=== PATIENT | male | born 1965 | race African-American/Black ===

== ENCOUNTER 2023-11-30 17:37 | Emergency (ER) | payer MEDICAID ==
[~2023-11-30] VITALS: Ht 188 cm; Wt 114.0 kg
[2023-11-30 17:50] VITALS: PULSE 109; RESP 16
[2023-11-30 17:52] VITALS: BP 142/97; TEMP 98.6; O2SAT 97
[2023-11-30 19:12] LABS: BASOPHILS % 0.8 % (0.0-2.0); EOSINOPHILS % 1.2 % (0.0-5.0); HEMATOCRIT. 44.2 % (42.0-52.0); HEMOGLOBIN. 15.3 g/dL (14.0-18.0); LYMPHOCYTES % 37.5 % (20.0-50.0); MEAN CORPUSCULAR HEMOGLOBIN 31.5 pg (28.0-32.0); MEAN CORPUSCULAR HGB CONC 34.7 g/dL (31.0-37.0); MEAN CORPUSCULAR VOLUME 90.7 fL (80.0-94.0); MEAN PLATELET VOLUME 7.7 fl (7.4-10.4); NEUTROPHILS % 55.5 % (40.0-76.0); PLATELET 273 x1000/uL (130-400); RED BLOOD CELL COUNT 4.88 mill/uL (4.7-6.1); RED CELL DISTRIBUTION WIDTH 13.6 % (11.6-14.6); WHITE BLOOD COUNT 12.6 x1000/uL (4.5-11.0)
[2023-11-30 19:30] LABS: CHLORIDE 107 mEq/L (98-107); POTASSIUM 3.9 mEq/L (3.5-5.1); SODIUM 143 mEq/L (136-145)
[2023-11-30 19:31] LABS: CALCIUM 10.9 mg/dL (8.7-10.4); CARBON DIOXIDE 28 mEq/L (21-32)
[2023-11-30 19:36] LABS: CREATININE 1.1 mg/dL (0.6-1.3); GLUCOSE 116 mg/dL (70-105); UREA NITROGEN BLOOD 13 mg/dL (9-23)
[2023-11-30 19:38] LABS: ALANINE AMINOTRANSFERASE 17 IU/L (10-49); ALBUMIN 4.9 g/dL (3.2-4.8); ASPARTATE AMINOTRANSFERASE 17 IU/L (<34); BILIRUBIN DIRECT 0.3 mg/dL (<=3.0); BILIRUBIN TOTAL 0.8 mg/dL (0.1-1.0); PROTEIN TOTAL 7.7 g/dL (6.0-8.3)
== END 2023-11-30 19:24 | disposition left against medical advice (07) ==
LOC: ER 17:57
DX: R10.9 Unspecified abdominal pain (principal); Z53.21 Procedure and treatment not carried out due to patient leaving prior to being seen by health care provider
CPT/HCPCS: 36415; 80048; 80076; 85025; 93005

== ENCOUNTER 2024-06-19 18:59 | Emergency (ER) | payer MEDICAID ==
[~2024-06-19] VITALS: Ht 182.9 cm; Wt 132.0 kg
[~2024-06-19 18:59] MED LIST: ASPI-1497 PO; BACL5TAB PO; CHOL-9 PO; CLOP-31 PO; DOCU-422 PO; LIP40 PO; METF-414 PO; MULT-1146 PO; TOPUD PO; TRAM50TA3 PO
[2024-06-19 19:08] VITALS: TEMP 98.1; O2SAT 97
[2024-06-19 20:28] LABS: BASOPHILS % 0.4 % (0.0-2.0); EOSINOPHILS % 0.6 % (0.0-5.0); HEMATOCRIT. 40.8 % (42.0-52.0); HEMOGLOBIN. 13.7 g/dL (14.0-18.0); LYMPHOCYTES % 33.5 % (20.0-50.0); MEAN CORPUSCULAR HEMOGLOBIN 30.4 pg (28.0-32.0); MEAN CORPUSCULAR HGB CONC 33.7 g/dL (31.0-37.0); MEAN CORPUSCULAR VOLUME 90.2 fL (80.0-94.0); MEAN PLATELET VOLUME 8.1 fl (7.4-10.4); MONOCYTES % 5.5 % (2.0-8.0); PLATELET 276 x1000/uL (130-400); RED BLOOD CELL COUNT 4.52 mill/uL (4.7-6.1); RED CELL DISTRIBUTION WIDTH 14.4 % (11.6-14.6); WHITE BLOOD COUNT 11.9 x1000/uL (4.5-11.0)
[2024-06-19 20:33] LABS: CALCIUM 9.8 mg/dL (8.7-10.4); CARBON DIOXIDE 25 mEq/L (21-32); CHLORIDE 110 mEq/L (98-107); POTASSIUM 3.4 mEq/L (3.5-5.1); SODIUM 145 mEq/L (136-145)
[2024-06-19 20:34] LABS: PROTHROMBIN TIME 11.4 sec (9.6-11.0)
[2024-06-19 20:36] LABS: CREATININE 0.8 mg/dL (0.6-1.3); GLUCOSE 140 mg/dL (70-105); UREA NITROGEN BLOOD 14 mg/dL (9-23)
[2024-06-19 20:38] LABS: ALANINE AMINOTRANSFERASE 13 IU/L (10-49); ALBUMIN 4.1 g/dL (3.2-4.8); ASPARTATE AMINOTRANSFERASE 17 IU/L (<34); BILIRUBIN DIRECT 0.2 mg/dL (<=3.0)
[2024-06-19 20:39] LABS: BILIRUBIN TOTAL 0.5 mg/dL (0.1-1.0); ETHANOL BLOOD < 10 mg/dL (<10); PROTEIN TOTAL 6.9 g/dL (6.0-8.3)
[2024-06-19 20:40] LABS: TROPONIN I HIGH SENSITIVITY 5 ng/L (3.0-53)
[2024-06-19] MEDS: MORPHINE SULFATE 4 MG/ML INJ (FOR IV/IM USE) IV ONE (21:20)
[2024-06-19 21:34] LABS: CLARITY URINE CLEAR (CLEAR); COLOR URINE DARK YELLOW (YELLOW); GLUCOSE URINE NEGATIVE (NEGATIVE); KETONES URINE TRACE (NEGATIVE); LEUKOCYTE ESTERASE URINE NEGATIVE (NEGATIVE); NITRITE URINE NEGATIVE (NEGATIVE); OCCULT BLOOD URINE NEGATIVE (NEGATIVE); PH URINE 5.5 (4.5-8.0); PROTEIN URINE NEGATIVE (NEGATIVE); SPECIFIC GRAVITY URINE 1.032 (1.005-1.030); UROBILINOGEN URINE 0.2 E.U./dL (0.2-1.0)
[2024-06-19 21:42] LABS: *AMPHETAMINES SCREEN URINE NEGATIVE (NEGATIVE); *BARBITURATES SCREEN URINE NEGATIVE (NEGATIVE); *BENZODIAZEPINES SCREEN URINE NEGATIVE (NEGATIVE); *COCAINE SCREEN URINE NEGATIVE (NEGATIVE); METHADONE URINE SCREEN NEGATIVE (NEGATIVE); OPIATES URINE SCREEN PRESUMPTIVE POSITIVE (NEGATIVE); PHENCYCLIDINE URINE SCREEN NEGATIVE (NEGATIVE)
[2024-06-19 21:43] LABS: CANNABINOID URINE SCREEN NEGATIVE (NEGATIVE); ECSTASY MDMA SCREEN URINE NEGATIVE (NEGATIVE)
[2024-06-19] MEDS: KETOROLAC 30MG/ML VIAL IV ONE (22:32)
[2024-06-19 22:46] VITALS: BP 143/86; PULSE 63; RESP 13; O2SAT 99
== END 2024-06-19 22:50 | disposition home or self-care (01) ==
LOC: ER 18:59
DX: G43.909 Migraine, unspecified, not intractable, without status migrainosus (principal); R25.2 Cramp and spasm; E11.9 Type 2 diabetes mellitus without complications; Z88.0 Allergy status to penicillin; Z79.899 Other long term (current) drug therapy; Z86.73 Personal history of transient ischemic attack (TIA), and cerebral infarction without residual deficits; Z79.82 Long term (current) use of aspirin; Z20.822 Contact with and (suspected) exposure to COVID-19
CPT/HCPCS: 80076; 80305; 80048; 81003; 80320; 82962; 83880; 83690; 85025; 85610; 84484; 87804 ×2; 36415; 71045; 70450; 74176; 93005; 96374; 96375; 99285; 87426; J1885; J2270; Z7610; G0480

== ENCOUNTER 2024-10-07 20:20 | Emergency (ER) | payer MEDICAID ==
[~2024-10-07] VITALS: Ht 188 cm; Wt 109.0 kg
[2024-10-07 20:44] VITALS: BP 127/90; PULSE 85; RESP 18; TEMP 36.6; O2SAT 98
== END 2024-10-07 23:15 | disposition left against medical advice (07) ==
LOC: ER 20:20
DX: R10.819 Abdominal tenderness, unspecified site (principal); E11.9 Type 2 diabetes mellitus without complications; I10 Essential (primary) hypertension; Z79.899 Other long term (current) drug therapy; Z86.73 Personal history of transient ischemic attack (TIA), and cerebral infarction without residual deficits; Z88.0 Allergy status to penicillin
CPT/HCPCS: 74176; 93005; 99284

== ENCOUNTER 2025-06-26 16:01 | Inpatient (IN) | payer MEDICAID ==
[~2025-06-26] VITALS: Ht 177.8 cm; Wt 88.5 kg
[2025-06-26 16:03] VITALS: O2SAT 100
[2025-06-26] MEDS: LORAZEPAM 2MG/ML UD SYRINGE IV NR (16:37)
[2025-06-26] MEDS: KETOROLAC 15MG/ML VIAL IV ONE (16:38)
[2025-06-26] MEDS: SODIUM CHLORIDE 0.9% 1,000 ML IV ONE (16:38)
[2025-06-26 17:30] LABS: BASOPHILS % 0.5 % (0.0-2.0); EOSINOPHILS % 1.0 % (0.0-5.0); HEMATOCRIT. 40.1 % (42.0-52.0); HEMOGLOBIN. 13.2 g/dL (14.0-18.0); LYMPHOCYTES % 42.9 % (20.0-50.0); MEAN PLATELET VOLUME 8.5 fl (7.4-10.4); MONOCYTES % 6.1 % (2.0-8.0); NEUTROPHILS % 49.5 % (40.0-76.0); PLATELET 198 x1000/uL (130-400); RED BLOOD CELL COUNT 4.51 mill/uL (4.7-6.1); RED CELL DISTRIBUTION WIDTH 15.2 % (11.6-14.6)
[2025-06-26 17:42] LABS: UREA NITROGEN BLOOD 9 mg/dL (9-23)
[2025-06-26 17:43] LABS: ETHANOL BLOOD < 10 mg/dL (<10)
[2025-06-26 17:44] LABS: ASPARTATE AMINOTRANSFERASE 21 IU/L (<34); BILIRUBIN DIRECT 0.3 mg/dL (<=3.0)
[2025-06-26 17:45] LABS: BILIRUBIN TOTAL 0.9 mg/dL (0.1-1.0); PROTEIN TOTAL 6.9 g/dL (6.0-8.3)
[2025-06-26 17:50] LABS: CREATININE 1.4 mg/dL (0.6-1.3)
[2025-06-26 21:09] LABS: CLARITY URINE CLEAR (CLEAR); COLOR URINE YELLOW (YELLOW); GLUCOSE URINE NEGATIVE (NEGATIVE); KETONES URINE TRACE (NEGATIVE); LEUKOCYTE ESTERASE URINE TRACE (NEGATIVE); NITRITE URINE NEGATIVE (NEGATIVE); OCCULT BLOOD URINE 3+ (NEGATIVE); PH URINE 7.5 (4.5-8.0); PROTEIN URINE NEGATIVE (NEGATIVE); SPECIFIC GRAVITY URINE 1.004 (1.005-1.030); UROBILINOGEN URINE 0.2 E.U./dL (0.2-1.0)
[2025-06-26 21:23] LABS: *AMPHETAMINES SCREEN URINE NEGATIVE (NEGATIVE); *BARBITURATES SCREEN URINE NEGATIVE (NEGATIVE); *BENZODIAZEPINES SCREEN URINE NEGATIVE (NEGATIVE); *COCAINE SCREEN URINE NEGATIVE (NEGATIVE); CANNABINOID URINE SCREEN NEGATIVE (NEGATIVE); ECSTASY MDMA SCREEN URINE NEGATIVE (NEGATIVE); METHADONE URINE SCREEN NEGATIVE (NEGATIVE); OPIATES URINE SCREEN NEGATIVE (NEGATIVE); PHENCYCLIDINE URINE SCREEN NEGATIVE (NEGATIVE)
[2025-06-26 21:30] LABS: BACTERIA URINE TRACE; RBC URINE NONE SEEN /hpf (0-2); SQUAMOUS EPITHELIAL CELL URINE FEW /lpf (RARE/1+); WBC URINE 0-2 /hpf (0-2)
[2025-06-27] MEDS ORDERED: LEVO-65 MT (01:44)
[2025-06-27] MEDS: ASPIRIN 81MG TABLET PO ONE (04:49)
[2025-06-27 04:52] LABS: BASOPHILS % 0.3 % (0.0-2.0); EOSINOPHILS % 1.1 % (0.0-5.0); HEMATOCRIT. 39.0 % (42.0-52.0); HEMOGLOBIN. 13.0 g/dL (14.0-18.0); LYMPHOCYTES % 43.8 % (20.0-50.0); MEAN PLATELET VOLUME 8.3 fl (7.4-10.4); MONOCYTES % 7.1 % (2.0-8.0); NEUTROPHILS % 47.7 % (40.0-76.0); PLATELET 189 x1000/uL (130-400); RED BLOOD CELL COUNT 4.49 mill/uL (4.7-6.1); RED CELL DISTRIBUTION WIDTH 15.0 % (11.6-14.6)
[2025-06-27 05:04] LABS: CREATININE 1.4 mg/dL (0.6-1.3); UREA NITROGEN BLOOD 13 mg/dL (9-23)
[2025-06-27 05:05] LABS: ETHANOL BLOOD < 10 mg/dL (<10)
[2025-06-27 05:06] LABS: ASPARTATE AMINOTRANSFERASE 20 IU/L (<34); BILIRUBIN DIRECT 0.3 mg/dL (<=3.0); BILIRUBIN TOTAL 0.8 mg/dL (0.1-1.0); PROTEIN TOTAL 6.3 g/dL (6.0-8.3)
[2025-06-27 05:51] LABS: INR 1.0
[2025-06-27 05:56] VITALS: BP 143/75; PULSE 47; RESP 20; TEMP 36.3; O2SAT 99
[2025-06-27] MEDS ORDERED: ACETAMINOPHEN 325MG TABLET PO PRN (06:00)
[2025-06-27] MEDS ORDERED: DEXTROSE 50% WATER 50ML SYRINGE IV PRN (06:00)
[2025-06-27] MEDS ORDERED: NALOXONE HCL 0.4MG/ML VIAL IV PRN (06:15)
[2025-06-27] MEDS ORDERED: IOHEXOL-350 100 ML BOTTLE ONE (07:13)
[2025-06-27] MEDS: BLOOD SUGAR DIAGNOSTIC STRIP TEST SCH (07:20)
[2025-06-27] MEDS: INSULIN LISPRO 100 UNITS/ML SUBCUT SCH (07:50)
[2025-06-27 08:00] VITALS: BP 127/65; PULSE 48; RESP 14; TEMP 36.2; O2SAT 99
[2025-06-27] MEDS: ASPIRIN 81MG TABLET PO SCH (10:01)
[2025-06-27] MEDS: CLOPIDOGREL 75MG TABLET PO SCH (10:02)
[2025-06-27] MEDS: HEPARIN 5000 UNITS/ML VIAL SUBCUT SCH (10:03)
[2025-06-27] MEDS: SODIUM CHLORIDE 0.9% 1,000 ML IV SCH (10:06)
[2025-06-27] MEDS: OXYCODONE HCL/ACETAMINOPHEN 5/325MG TABLET PO PRN (10:10)
[2025-06-27 12:00] VITALS: BP 114/75; PULSE 51; RESP 15; TEMP 36.5; O2SAT 99
[2025-06-27] MEDS: PANTOPRAZOLE SODIUM 40 MG/VIAL IV SCH (12:27)
[2025-06-27] MEDS: CALCIUM CARBONATE 500MG TABLET CHEW PO NR (12:28)
[2025-06-27] MEDS: NITROGLYCERIN 0.4MG TABLET SL SL PRN (12:29)
[2025-06-27 13:00] VITALS: BP 114/75; PULSE 51; RESP 16; TEMP 36.5292
[2025-06-27] MEDS ORDERED: INFLUENZA VACCINE 05/PF 0.5 ML SYRINGE IM ONE (15:00)
[2025-06-27] MEDS ORDERED: PNEUMOCOCCAL 20-VAL CONJ-DIP CRM 0.5ML IM ONE (15:00)
[2025-06-27 16:00] VITALS: BP 105/72; PULSE 50; RESP 15; TEMP 36.5; O2SAT 100
[2025-06-27 20:00] VITALS: BP 106/64; PULSE 49; RESP 19; TEMP 37; O2SAT 98
[2025-06-27 20:19] LABS: LDL CHOLESTEROL 22.0 mg/dL (5-100); TRIGLYCERIDE 83.0 mg/dL (0-150); TROPONIN I HIGH SENSITIVITY 9 ng/L (3.0-53)
[2025-06-27 20:23] LABS: FOLIC ACID (FOLATE) SERUM 16.85 ng/mL (>5.38); VITAMIN B12 SERUM 1481 pg/mL (211-911)
[2025-06-27] MEDS: ATORVASTATIN CALCIUM 40MG TABLET PO SCH (20:57)
[2025-06-28] VITALS: BP 98/57; PULSE 48; RESP 19; TEMP 36.4; O2SAT 99
[2025-06-28 04:00] VITALS: BP 108/67; PULSE 49; RESP 19; TEMP 36.5; O2SAT 98
[2025-06-28 08:00] VITALS: BP 124/79; PULSE 60; RESP 16; TEMP 36.1; O2SAT 98
[2025-06-28 09:19] LABS: BASOPHILS % 0.3 % (0.0-2.0); EOSINOPHILS % 1.6 % (0.0-5.0); HEMATOCRIT. 40.1 % (42.0-52.0); HEMOGLOBIN. 13.3 g/dL (14.0-18.0); LYMPHOCYTES % 30.6 % (20.0-50.0); MEAN PLATELET VOLUME 8.2 fl (7.4-10.4); MONOCYTES % 6.0 % (2.0-8.0); NEUTROPHILS % 61.5 % (40.0-76.0); PLATELET 173 x1000/uL (130-400); RED BLOOD CELL COUNT 4.53 mill/uL (4.7-6.1); RED CELL DISTRIBUTION WIDTH 15.2 % (11.6-14.6)
[2025-06-28 09:30] LABS: TROPONIN I HIGH SENSITIVITY 8 ng/L (3.0-53)
[2025-06-28 09:31] LABS: CREATININE 1.2 mg/dL (0.6-1.3); UREA NITROGEN BLOOD 9 mg/dL (9-23)
[2025-06-28] MEDS: MAGNESIUM OXIDE 400MG TABLET PO SCH (10:51)
[2025-06-28 12:00] VITALS: BP 140/80; PULSE 56; RESP 17; TEMP 35.8; O2SAT 99
[2025-06-28] MEDS: THEOPHYLLINE ANHYDROUS 80MG/15ML ORAL SYR PO SCH (13:08)
[2025-06-28] MEDS ORDERED: POLYETHYLENE GLYCOL 3350 (17GM) 1 DOSE PACK PO PRN (13:45)
[2025-06-28] MEDS: LORAZEPAM 2MG/ML UD SYRINGE IV PRN (14:38)
[2025-06-28 16:00] VITALS: BP 130/78; PULSE 60; RESP 17; TEMP 36.2; O2SAT 98
[2025-06-28 20:00] VITALS: BP 125/85; PULSE 69; RESP 18; TEMP 36.2; O2SAT 99
[2025-06-29] VITALS: BP 133/77; PULSE 64; RESP 19; TEMP 36.3; O2SAT 97
[2025-06-29 04:00] VITALS: BP 145/84; PULSE 63; RESP 18; TEMP 36.4; O2SAT 99
[2025-06-29 08:00] VITALS: BP 136/83; PULSE 67; RESP 18; TEMP 36.7; O2SAT 97
[2025-06-29 12:00] VITALS: BP 134/88; PULSE 82; RESP 18; TEMP 36; O2SAT 99
[2025-06-29 16:00] VITALS: BP 145/81; PULSE 57; RESP 18; TEMP 36.3; O2SAT 96
[2025-06-29 20:00] VITALS: BP 110/69; PULSE 65; RESP 18; TEMP 36.4; O2SAT 97
[2025-06-29] MEDS: THEOPHYLLINE ANHYDROUS 80MG/15ML ORAL SYR PO SCH (20:05)
[2025-06-30] VITALS (7 sets, daily range): BP systolic 102–144; BP diastolic 68–85; PULSE 65–86; RESP 16–20; TEMP 36.3–36.8; O2SAT 95–99
[2025-06-30] MEDS ORDERED: VANC250C12 MT (12:25)
[2025-07-01] VITALS: BP_SYST 128; BP_SYST 132; BP_DIAS 70; BP_DIAS 72; PULSE 71; PULSE 78; RESP 20; TEMP 36.4; O2SAT 96
[2025-07-01 08:00] VITALS: BP 113/77; PULSE 80; RESP 18; TEMP 37.4; O2SAT 98
[2025-07-01 12:00] VITALS: BP_SYST 112; BP_SYST 141; BP_DIAS 75; BP_DIAS 77; PULSE 40; PULSE 67; RESP 18; TEMP 36.5; TEMP 37.2; O2SAT 100; O2SAT 98
[2025-07-01 16:00] VITALS: BP 127/91; PULSE 82; RESP 18; TEMP 36.6; O2SAT 98
[2025-07-01] MEDS: VANCOMYCIN 125MG/2.5ML ORAL SYR PO SCH (17:20)
[2025-07-01 20:00] VITALS: BP 119/72; PULSE 75; RESP 16; TEMP 36.4; O2SAT 90
[2025-07-02] VITALS: BP 135/75; PULSE 62; RESP 16; TEMP 36.3; O2SAT 93
[2025-07-02 04:00] VITALS: BP 115/68; PULSE 66; RESP 16; TEMP 36.6; O2SAT 94
[2025-07-02 08:00] VITALS: BP 116/72; PULSE 65; RESP 18; TEMP 36.4; O2SAT 99
[2025-07-02 08:21] LABS: BASOPHILS % 0.5 % (0.0-2.0); EOSINOPHILS % 2.2 % (0.0-5.0); HEMATOCRIT. 38.2 % (42.0-52.0); HEMOGLOBIN. 12.7 g/dL (14.0-18.0); LYMPHOCYTES % 39.9 % (20.0-50.0); MEAN PLATELET VOLUME 8.7 fl (7.4-10.4); MONOCYTES % 5.8 % (2.0-8.0); NEUTROPHILS % 51.6 % (40.0-76.0); PLATELET 169 x1000/uL (130-400); RED BLOOD CELL COUNT 4.32 mill/uL (4.7-6.1); RED CELL DISTRIBUTION WIDTH 15.1 % (11.6-14.6)
[2025-07-02 08:39] LABS: CREATININE 0.9 mg/dL (0.6-1.3); UREA NITROGEN BLOOD 12 mg/dL (9-23)
[2025-07-02] MEDS: FAMOTIDINE 20MG/2ML VIAL IV SCH (09:37)
[2025-07-02 10:44] VITALS: BP 116/72; PULSE 65; RESP 20; TEMP 97.6
== END 2025-07-02 12:09 | disposition home or self-care (01) | DRG 52 ==
LOC: ER 16:01 → 6WST 06-27 04:35 → EDBEDREQTM 06-27 04:37 → EDBEDREQ 06-27 04:37 → ENRESERV 06-27 05:02 → 4WST 06-30 10:50
PROVIDERS: ADMIT Internal Medicine; ATTEND Internal Medicine
DX: G92.8 Other toxic encephalopathy (principal); A04.72 Enterocolitis due to Clostridium difficile, not specified as recurrent; I69.354 Hemiplegia and hemiparesis following cerebral infarction affecting left non-dominant side; N20.1 Calculus of ureter; D64.9 Anemia, unspecified; E11.9 Type 2 diabetes mellitus without complications; E78.5 Hyperlipidemia, unspecified; E83.42 Hypomagnesemia; Z79.02 Long term (current) use of antithrombotics/antiplatelets; N30.90 Cystitis, unspecified without hematuria; I10 Essential (primary) hypertension; K57.30 Diverticulosis of large intestine without perforation or abscess without bleeding; N28.1 Cyst of kidney, acquired; R00.1 Bradycardia, unspecified; E87.6 Hypokalemia; Z79.82 Long term (current) use of aspirin; Z79.84 Long term (current) use of oral hypoglycemic drugs; Z79.899 Other long term (current) drug therapy; Z87.442 Personal history of urinary calculi; Z88.0 Allergy status to penicillin; Z91.018 Allergy to other foods; Z78.9 Other specified health status
CPT/HCPCS: 36415; 70496; 70498; 70551; 74176; 80048; 80061; 80076; 80305; 80320; 81003; 82140; 82607; 82746; 82962; 83036; 83735; 84443; 84484; 85025; 85379; 87015; 87045; 87177; 87209; 87427; 87449; 87493; 89055; 92610; 93005; 93306; 93970; 97116; 97162; 97166; 97530; 99291; A4606; A4615; J1308; J1644; J1885; J2060; J2470; J3373; J7030; Q9967; G0480